=== PATIENT | female | born 1935 | race Caucasian/White ===

== ENCOUNTER → 2022-01-17 | Outpatient (CLI) | payer MEDICARE, OTHER ==
[~2022-01-17] MED LIST: ASPIRIN CHEWABL81 MG PO; CRESTOR40 MG PO; KEFLEX500 MG PO; LOPRESSOR50 MG PO; LOSARTAN-HCTZ1 EAC2 PO; OMEPRAZOLE40 MG PO; OMNICEF 300 MG300 MG PO; PLETAL 100 MG100 MG PO; SYNTHROID75 MCG PO; TAMIFLU75 MG PO
== END ==
LOC: HEART 5 14:32
DX: R91.8 Other nonspecific abnormal finding of lung field (principal)
CPT/HCPCS: 94060

== ENCOUNTER 2022-02-13 13:24 | Inpatient (IN) | payer MEDICARE, OTHER ==
[~2022-02-13] VITALS: Ht 157.5 cm; Wt 53.1 kg
[2022-02-13 14:15] LABS: HEMOGLOBIN 10.7 gm/dl (12.3-15.3); RED BLOOD COUNT 3.54 M/UL (4.00-5.10); WHITE BLOOD COUNT 14.8 K/UL (4.5-11.0)
[2022-02-14 06:34] LABS: HEMOGLOBIN 9.7 gm/dl (12.3-15.3)
[2022-02-14 06:36] LABS: RED BLOOD COUNT 3.17 M/UL (4.00-5.10); WHITE BLOOD COUNT 10.5 K/UL (4.5-11.0)
[2022-02-14] MEDS ORDERED: CLOPIDOGREL75 MG PO (13:47)
[2022-02-14] MEDS ORDERED: VALSARTAN-HCTZ1 EAC1 PO (13:48)
[2022-02-14] MEDS ORDERED: OXYCODONE HCL10 MG PO (14:03)
[2022-02-15 05:50] LABS: HEMOGLOBIN 10.1 gm/dl (12.3-15.3); RED BLOOD COUNT 3.32 M/UL (4.00-5.10); WHITE BLOOD COUNT 12.4 K/UL (4.5-11.0)
[2022-02-16 04:24] LABS: HEMOGLOBIN 9.4 gm/dl (12.3-15.3); RED BLOOD COUNT 3.06 M/UL (4.00-5.10); WHITE BLOOD COUNT 9.5 K/UL (4.5-11.0)
[2022-02-18] MEDS ORDERED: ELIQUIS5 MG PO (08:44)
[2022-02-18] MEDS ORDERED: ELIQUIS 5 MG TAB5 MG PO (08:44)
[2022-02-18] MEDS ORDERED: OMNICEF 300 MG300 MG PO (08:54)
[2022-02-18] MEDS ORDERED: LOPRESSOR 50 MG50 MG PO (08:54)
[2022-02-18] MEDS ORDERED: K-PHOS TAB505 MG PO (08:54)
[2022-02-18] MEDS ORDERED: AZITHROMYCIN250 MG PO (08:54)
== END 2022-02-18 11:35 | disposition home or self-care (01) | DRG 871 ==
LOC: ER1 13:24 → MED SURG 4 16:38 → CDU 16:38 → MED SURG 4 16:53
PROVIDERS: Emergency Medicine; Physician Assistant; Physician Assistant Medical; ADMIT Internal Medicine
DX: A41.51 Sepsis due to Escherichia coli [E. coli] (principal); J18.9 Pneumonia, unspecified organism; N30.00 Acute cystitis without hematuria; J96.11 Chronic respiratory failure with hypoxia; E87.2 Acidosis; C34.90 Malignant neoplasm of unspecified part of unspecified bronchus or lung; E83.42 Hypomagnesemia; E87.6 Hypokalemia; Z20.822 Contact with and (suspected) exposure to COVID-19; E83.39 Other disorders of phosphorus metabolism; N18.30 Chronic kidney disease, stage 3 unspecified; E78.5 Hyperlipidemia, unspecified; H91.90 Unspecified hearing loss, unspecified ear; E03.9 Hypothyroidism, unspecified; I73.9 Peripheral vascular disease, unspecified; Z66 Do not resuscitate; I12.9 Hypertensive chronic kidney disease with stage 1 through stage 4 chronic kidney disease, or unspecified chronic kidney disease; L89.222 Pressure ulcer of left hip, stage 2; K44.9 Diaphragmatic hernia without obstruction or gangrene; F03.90 Unspecified dementia, unspecified severity, without behavioral disturbance, psychotic disturbance, mood disturbance, and anxiety; Z88.0 Allergy status to penicillin; Z99.81 Dependence on supplemental oxygen; Z95.0 Presence of cardiac pacemaker; Z95.828 Presence of other vascular implants and grafts; Z87.891 Personal history of nicotine dependence; Z90.49 Acquired absence of other specified parts of digestive tract; Z82.49 Family history of ischemic heart disease and other diseases of the circulatory system; Z83.3 Family history of diabetes mellitus; Z79.899 Other long term (current) drug therapy; Z79.01 Long term (current) use of anticoagulants
CPT/HCPCS: 36415; 71045; 71275; 80048; 80053; 81001; 83605; 83735; 84100; 84132; 84439; 84443; 85025; 85027; 85379; 87040; 87077; 87086; 87186; 93005; 93970; 96361; 96374; 97110-GP-CQ; 97116-GP-CQ; 97161; 99285; J0456; J0696; J1650; J2405; J3475; J3480; J7030; J7070; Q9967